=== PATIENT | male | born 1970 | race Caucasian/White ===

== ENCOUNTER 2024-01-14 11:42 | Day surgery (SDC) | payer OTHER ==
[~2024-01-14] VITALS: Ht 182.9 cm; Wt 110.8 kg
[~2024-01-14 11:42] MED LIST: LR 1,000 ML IV SCH; Ondansetron 4 MG/2 ML VIAL IV PRN
[2024-01-14] MEDS ORDERED: COZAAR 25MG25 MG/TAB PO (11:58)
[2024-01-14] MEDS ORDERED: NORVASC 10MG10 MG PO (11:58)
[2024-01-14] MEDS ORDERED: LAMICTAL200 MG PO (11:59)
[2024-01-14] MEDS ORDERED: EFFEXOR-XR150 MG PO (12:01)
[2024-01-14] MEDS ORDERED: LUNESTA3 MG PO (12:01)
[2024-01-14] MEDS ORDERED: ABILIFY5 MG PO (12:01)
[2024-01-14] MEDS ORDERED: TOPROL XL 25MG25 MG PO (12:02)
[2024-01-14] MEDS ORDERED: BUSPAR 30MG30 MG/TAB PO (12:03)
[2024-01-14] MEDS ORDERED: MASON NATURAL2000 IU PO (12:05)
[2024-01-14] MEDS ORDERED: PEPCID 20MG TAB20 MG PO (12:05)
[2024-01-14] MEDS ORDERED: LINZESS72 MCG PO (12:06)
[2024-01-14] MEDS ORDERED: ZOCOR 20MG20 MG PO (12:09)
[2024-01-14] MEDS ORDERED: RITALIN LA10 MG PO (12:09)
[2024-01-14] MEDS ORDERED: ATIVAN 0.50.5 MG/TAB PO (12:12)
[2024-01-14] MEDS ORDERED: ZANAFLEX 4MG TAB4 MG PO (12:14)
[2024-01-14 12:22] VITALS: BP 134/79; PULSE 80; TEMP 97.8
[2024-01-14] MEDS ORDERED: Lidocaine PF 2% (20 MG/ML) 5 ML VIAL ONE (12:37)
[2024-01-14 13:30] VITALS: BP 109/76; PULSE 69; TEMP 96.7
[2024-01-14 13:45] VITALS: BP 111/78; PULSE 64
[2024-01-14 14:00] VITALS: BP 127/77; PULSE 65
--- NOTE | 2024-01-14 14:25 | NUR ---
1330- PATIENT RETURNS TO [facility] [place] [facility] VIA CART. PT AWAKE AND ALERT. RESPIRATIONS UNLABORED. AMBULATED TO RECLINER CHAIR WITH 2:1 SBA. PT DENIES NAUSEA OR ABDOMINAL PAIN. HOOKED UP TO MONITOR AND VS OBTAINED. CALL LIGHT AT SIDE AND PRESENT. 1335- PATIENT TOLERATING APPLE JUICE AND MUFFINS WITHOUT NAUSEA OR DIFFICULTY SWALLOWING. 1336- DR. CASTANEDA IN ROOM SPEAKING WITH PATIENT. 1355- D/C INSTRUCTIONS REVIEWED WITH PATIENT. PT VERBALIZED UNDERSTANDING AND A COPY OF INSTRUCTIONS PROVIDED IN D/C FOLDER. 1416- PATIENT DRESSES SELF. 1425- PATIENT DISCHARGED FROM UNIT VIA W/C TO A PERSONAL VEHICLE. PT LEFT HOSPITAL IN STABLE CONDITION.
== END 2024-01-14 14:25 | disposition home or self-care (01) ==
LOC: SDCO 11:42
DX: K29.51 Unspecified chronic gastritis with bleeding (principal); K62.1 Rectal polyp; K44.9 Diaphragmatic hernia without obstruction or gangrene; K59.04 Chronic idiopathic constipation; R15.2 Fecal urgency; N28.9 Disorder of kidney and ureter, unspecified; R73.03 Prediabetes; E53.8 Deficiency of other specified B group vitamins
CPT/HCPCS: J2405; J2704; J7120